=== PATIENT | male | born 1965 | race Caucasian/White ===

== ENCOUNTER 2017-02-22 12:05 | Emergency (ER) | payer MEDICARE, OTHER ==
[~2017-02-22] VITALS: Ht 167.6 cm; Wt 98.0 kg
[~2017-02-22 12:05] MED LIST: BENA10TA48 PO; DICL50TA2 PO; GLIP5TAB13 PO; HYDR-3498 PO; HYDR-762 PO; IBUP-1542 PO; METF500T4 PO; OMEP20CA16 PO; OXYC-284 PO; TIZA4CAP6 PO; TRAM50TA2 PO
[2017-02-22 12:07] VITALS: Ht 167.6 cm; Wt 98.0 kg
[2017-02-22] MEDS ORDERED: ONDANSETRON 4 MG INJ IV STA ×2 (12:48→14:41)
[2017-02-22] MEDS ORDERED: morphine 4 MG/ML VIAL IV STA (12:48)
[2017-02-22] MEDS ORDERED: METHYLPREDNISOLONE 125 MG INJ IV ONE (13:00)
[2017-02-22 13:05] LABS: ADD SCAN DIFF NO
[2017-02-22 13:07] LABS: BASOPHILS % 0.3 % (0.0-2.0); EOSINOPHILS % 0.4 % (0.0-7.0); HEMATOCRIT 44.3 % (42.0-52.0); HEMOGLOBIN 15.1 g/dl (14.0-18.0); LYMPHOCYTES # 1.7 10^3/ul (0.8-2.9); MEAN CORPUSCULAR HEMOGLOBIN 29.6 pg (29.0-33.0); MEAN CORPUSCULAR HGB CONC 34.1 g/dl (32.0-37.0); MEAN CORPUSCULAR VOLUME 86.9 fl (82.0-101.0); MEAN PLATELET VOLUME 9.9 fl (7.4-10.4); MONOCYTE # 0.6 10^3/ul (0.3-0.9); MONOCYTES % 6.1 % (0.0-11.0); NEUTROPHIL # 6.8 10^3/ul (1.6-7.5); NEUTROPHILS % 74.9 % (39.0-77.0); PLATELET COUNT 269 10^3/UL (140-415); RED CELL DISTRIBUTION WIDTH 12.3 % (11.5-14.5); WHITE BLOOD COUNT 9.2 10^3/ul (4.8-10.8)
[2017-02-22 13:27] LABS: INR 0.95; PROTIME 12.7 Sec (12.2-14.2)
[2017-02-22 13:28] LABS: PARTIAL THROMBOPLASTIN TIME 29.5 Sec (25.0-35.0)
[2017-02-22 13:29] LABS: ALBUMIN/GLOBULIN RATIO 1.54; ANION GAP 12 (8-16)
[2017-02-22 13:41] LABS: ALANINE AMINOTRANSFERASE 44 IU/L (13-69); ALBUMIN 4.8 g/dl (3.3-4.9); ALKALINE PHOSPHATASE 83 IU/L (42-121); AMYLASE 66 U/L (11-123); ASPARTATE AMINO TRANSFERASE 26 IU/L (15-46); BILIRUBIN,INDIRECT 0.5 mg/dl (0-1.1); BILIRUBIN,TOTAL 0.5 mg/dl (0.2-1.3); BLOOD UREA NITROGEN 10 mg/dl (7-20); CALCIUM 9.6 mg/dl (8.4-10.2); CARBON DIOXIDE 30 mmol/L (21-31); CHLORIDE 94 mmol/L (97-110); CREATININE 0.62 mg/dl (0.61-1.24); GLUCOSE 180 mg/dl (70-220); POTASSIUM 3.8 mmol/L (3.5-5.1); SODIUM 132 mmol/L (135-144); TOTAL PROTEIN 7.9 g/dl (6.1-8.1); TROPONIN-I < 0.012 ng/ml (0.00-0.12)
[2017-02-22] MEDS ORDERED: HYDROmorphONE 1 MG/ML SYG IV STA (14:41)
[2017-02-22] MEDS ORDERED: DIAZEPAM 5 MG/ML SYG IV ONE (15:00)
--- NOTE | 2017-02-22 15:58 | RADRPT ---
PROCEDURE: MRI lumbar spine without contrast CLINICAL INDICATION: Back pain TECHNIQUE: An high-resolution MRI of the lumbar spine was performed utilizing the following sequen albertina: Sagittal and axial T1 weighted, sagittal and axial T2 weighted, and sagittal fat suppressed T2. COMPARISON: None FINDINGS: No acute vertebral compression fracture. No evidence of a diffuse marrow replacing process. The conus medullaris terminates at L1. T12 - L1: The disk is preserved in height. 1 mm central disk protrusion. No spinal canal or foramin al stenosis. L1 - L2: The disk is preserved in height. Small circumferential disk bulge with 1 mm right central disk protrusion. No significant spinal canal or foraminal stenosis. L2 - L3: Mild disk height loss. Small circumferential disk bulge with superimposed 4 mm right fora elizabeth disk protrusion. Mild to moderate right foraminal narrowing. Narrowing of the right lateral recess with mild spinal canal stenosis. L3 - L4: Mild disk height loss. Right laminectomy changes. Cystic appearing structure in the rig ht central region extending to the laminectomy defect measures 8 x 15 mm and results in effacement o f the right lateral recess. An underlying small disk bulge and moderate thecal sac stenosis is ident ified. Moderate right and mild to moderate left foraminal narrowing. L4 - L5: Right laminectomy changes. Moderate circumferential disk bulge with residual or recurre nt 5 mm right foraminal disk protrusion is identified resulting in moderate right foraminal stenosis and effacement of the right lateral recess. There is borderline, mild spinal canal narrowing. Mil d to moderate left foraminal narrowing. L5 - S1: Bulging of the posterior disk annulus with advanced facet arthropathy. Moderate right an d mild left foraminal narrowing. No significant spinal canal stenosis. Paraspinal soft tissues are unremarkable. IMPRESSION: No acute compression fracture. L3 - L4: Right laminectomy changes. Cystic appearing structure in the right central region extend ing to the laminectomy defect measures 8 x 15 mm and results in effacement of the right lateral rece ss. This may represent extruded disk material or a facet synovial cyst. An underlying small disk bu lge and moderate thecal sac stenosis is identified. Moderate right and mild to moderate left forami nal narrowing. L4 - L5: Right laminectomy changes. Moderate circumferential disk bulge with residual or recurre nt 5 mm right foraminal disk protrusion is identified resulting in moderate right foraminal stenosis and effacement of the right lateral recess. There is borderline, mild spinal canal narrowing. Mil d to moderate left foraminal narrowing. L5 - S1: Bulging of the posterior disk annulus with advanced facet arthropathy. Moderate right an d mild left foraminal narrowing. See details in the findings. RPTAT: AA .Ravin Ragland MD, MD Date Time Electronically viewed and signed by .Ravin Ragland MD, on 02/22/2017 15:58 .T/
[2017-02-22] MEDS ORDERED: GLIP5TAB13 PO (16:13)
[2017-02-22] MEDS ORDERED: HYDR-902 PO (16:13)
[2017-02-22] MEDS ORDERED: BENA20TA48 PO (16:14)
[2017-02-22] MEDS ORDERED: CARI350T29 PO (16:14)
[2017-02-22] MEDS ORDERED: ATOR20TA38 PO (16:14)
[2017-02-22] MEDS ORDERED: MED4DP PO (17:04)
[2017-02-22] MEDS ORDERED: DIAZ10TA4 PO (17:04)
[2017-02-22 17:15] VITALS: BP 165/89; PULSE 78; RESP 16
--- NOTE | 2017-02-23 14:57 | ERD ---
ER Documentation Chief Complaint Date/Time DATE: 02/23/17 TIME: 14:52 Chief Complaint 10 lower back pain that radiates down r. leg x 1 day HPI This is a very pleasant 52-year-old male with a known history of chronic lower back pain with laminectomy of the lower lumbar spine one year prior to arrival. The patient indicates that for the past 48 hours he has been experiencing a severe pain in his right buttocks that radiates to the lateral aspect and top aspect of his right leg. He indicates that he is also experiencing some numbness in the lateral aspect of the leg. He denies any changes in his bladder or bowel frequency. He has had no fevers no shaking or chills. He denies any hemoptysis hematemesis or melanotic stools. The patient indicates he takes [place] and Soma for analgesic control which he took roughly an hour prior to arrival however this has not improved his symptoms. He does ambulate with a cane since the surgery. He denies any recent remote trauma. The patient indicates that the pain he is experiencing in his right buttocks and right leg with the numbness is similar to what he experienced one year ago prior to his surgery. He denies any chest pain or pressure. He denies any lower abdominal pain. He has no shortness of breath at rest or exertion. ROS All systems reviewed and are negative except as per history of present illness. Medications Home Meds Active Scripts Diazepam* (Diazepam*) 10 Mg Tablet, 10 MG PO Q6, #10 TAB Prov:CITLALLI MONTES 02/22/17 Methylprednisolone* (Medrol* DOSE PACK) 4 Mg/Dose-Pack Tab.ds.pk, 4 MG PO . DIRECTED, #1 PACKET Prov:CITLALLI MONTES 02/22/17 Reported Medications Atorvastatin Calcium* (Atorvastatin Calcium*) 20 Mg Tablet, 20 MG PO QHS, #30 TAB 02/22/17 Benazepril Hcl* (Benazepril Hcl*) 20 Mg Tablet, 20 MG PO DAILY, #30 TAB 02/22/17 Carisoprodol* (Carisoprodol*) 350 Mg Tablet, 350 MG PO DAILY Y for MUSCLE SPASMS , TAB 02/22/17 Glipizide* (Glipizide*) 5 Mg Tablet, 5 MG PO AC BREAKFAST, TAB 02/22/17 Hydrocodone/Acetaminophen ([place] 10-325 Tablet) 1 Each Tablet, 1 EACH PO Q6H Y for PAIN, TAB 02/22/17 Discontinued Reported Medications Metformin Hcl* (Metformin Hcl*) 500 Mg Tablet, 500 MG PO BID, #30 TAB 06/26/16 Benazepril Hcl* (Benazepril Hcl*) 10 Mg Tablet, 10 MG PO DAILY, #30 TAB 06/26/16 Glipizide* (Glipizide*) 5 Mg Tablet, 5 MG PO DAILY, TAB 01/03/15 Omeprazole* (Omeprazole*) 20 Mg Capsule.dr, 20 MG PO DAILY, CAP 01/03/15 Hydrocodone Bit-Acetaminophen* ([place]*) 10-325 Mg Tablet, 1 TAB PO Q4H Y for PAIN, TAB 01/03/15 Discontinued Scripts Tramadol HCl (Tramadol HCl) 50 Mg Tablet, 50 MG PO Q6 Y for PAIN, #6 TAB Prov:[facility] 11/05/15 Diclofenac Potassium (Diclofenac Potassium) 50 Mg Tablet, 50 MG PO Q8, #10 TAB [facility] 11/05/15 Tizanidine Hcl* (Tizanidine Hcl*) 4 Mg Capsule, 4 MG PO Q8H Y for MUSCLE SPASMS , #12 CAP Prov:LEXY,[facility] 11/05/15 Hydrocodone Bit-Acetaminophen* ([place]*) 5-325 Mg Tab, 1 TAB PO Q6 Y for PAIN, # 7 TAB Prov:ELYSE FAROOQ [employer] 11/04/15 Ibuprofen* (Motrin*) 600 Mg Tab, 600 MG PO Q6H Y for PAIN AND OR ELEVATED TEMP, #30 TAB Prov:ELEN RILEY [employer] 11/02/15 Oxycodone Hcl-Acetaminophen* (Percocet*) 10-325 Mg Tablet, 1 TAB PO Q4H Y for SEVERE PAIN LEVEL 7-10, #30 TAB Prov:ELEN RILEY [employer] 11/02/15 Hydrocodone Bit-Acetaminophen* ([place]*) 10-325 Mg Tablet, 1 TAB PO Q6 Y for PAIN , #10 TAB Prov:LINA TORO NP 10/23/15 Allergies Allergies: Coded Allergies: No Known Allergy (Unverified , 02/22/17) PMhx/Soc History of Surgery: Yes (see notes) Anesthesia Reaction: No Hx Neurological Disorder: No Hx Respiratory Disorders: No Hx Cardiac Disorders: Yes (htn) Hx Psychiatric Problems: No Hx Miscellaneous Medical Probl: Yes (see notes) Hx Alcohol Use: No Hx Substance Use: No Hx Tobacco Use: No Smoking Status: Never smoker Physical Exam Vitals Vital Signs Date Time Temp Pulse Resp B/P Pulse Ox O2 Delivery O2 Flow Rate FiO2 02/22/17 17:15 78 16 165/89 98 Room Air 02/22/17 13:40 80 16 207/106 98 Room Air 02/22/17 12:07 97.4 98 18 219/105 96 Physical Exam Constitutional:Well-developed. Well-nourished. HEENT:Normocephalic. Atraumatic.Pupils were equal round reactive to light. Moist mucous membranes.No tonsillar exudates. Neck: No nuchal rigidity. No lymphadenopathy. No posterior cervical spine tenderness or step-offs. Respiratory: Not using accessory muscles of respiration.Lungs were clear to auscultation bilaterally. No rhonchi. No rales. No wheezing. Cardiovascular: Regular rate regular rhythm.No murmurs. No rubs were appreciated.S1, S2 normal. Distal pulses are palpable 2+ bilaterally. GI: Abdomen was soft. Nontender. Non Distended. No pulsatile abdominal masses or bruits. No rebound. No guarding. Bowel sounds were present and normal. Muscle skeletal: Full range of motion of both the upper and lower extremities bilaterally.Normal muscle tone.No assymetrical calf tenderness or swelling. Reproducible paralumbar tenderness on the right side over L4-L5 with positive straight leg test on the right. Straight leg test negative on the left. No tenderness with palpation or percussion of the thoracic spinous processes Skin: No petechia, no purpura. No lesions on the palms or the soles of the feet. No maculopapular rash. NEURO: Patient was alert, awake, orientated x3.No facial droop. Gait observed and normal with no ataxia.Speech had regular rate and rhythm. No focal neurological deficits. Result Diagram: 02/22/17 1251 02/22/17 1251 Results 24 hrs Laboratory Tests Test 02/22/17 12:51 White Blood Count 9.210^3/ul Red Blood Count 5.1010^6/ul Hemoglobin 15.1g/dl Hematocrit 44.3% Mean Corpuscular Volume 86.9fl Mean Corpuscular Hemoglobin 29.6pg Mean Corpuscular Hemoglobin Concent 34.1g/dl Red Cell Distribution Width 12.3% Platelet Count 99935^3/UL Mean Platelet Volume 9.9fl Neutrophils % 74.9% Lymphocytes % 18.0% Monocytes % 6.1% Eosinophils % 0.4% Basophils % 0.3% Nucleated Red Blood Cells % 0.0/100WBC Neutrophils # 6.810^3/ul Lymphocytes # 1.710^3/ul Monocytes # 0.610^3/ul Eosinophils # 0.010^3/ul Basophils # 0.010^3/ul Nucleated Red Blood Cells # 0.010^3/ul Prothrombin Time 12.7Sec Prothrombin Time Ratio 1.0 INR International Normalized Ratio 0.95 Activated Partial Thromboplast Time 29.5Sec Sodium Level 132mmol/L Potassium Level 3.8mmol/L Chloride Level 94mmol/L Carbon Dioxide Level 30mmol/L Anion Gap 12 Blood Urea Nitrogen 10mg/dl Creatinine 0.62mg/dl Glucose Level 180mg/dl Calcium Level 9.6mg/dl Total Bilirubin 0.5mg/dl Direct Bilirubin 0.00mg/dl Indirect Bilirubin 0.5mg/dl Aspartate Amino Transf (AST/SGOT) 26IU/L Alanine Aminotransferase (ALT/SGPT) 44IU/L Alkaline Phosphatase 83IU/L Troponin I < 0.012ng/ml Total Protein 7.9g/dl Albumin 4.8g/dl Globulin 3.10g/dl Albumin/Globulin Ratio 1.54 Amylase Level 66U/L Lipase 26U/L Current Medications Medications (Trade) Dose Ordered Sig/Beni Route PRN Reason Start Time Stop Time Status Last Admin Dose Admin Morphine Sulfate (morphine) 4 mg ONCE STAT IV 02/22/17 12:48 02/22/17 12:52 DC 02/22/17 13:28 Ondansetron HCl (Zofran Inj) 4 mg ONCE STAT IV 02/22/17 12:48 02/22/17 12:52 DC 02/22/17 13:28 Clonidine (Catapres) 0.1 mg ONCE ONCE PO 02/22/17 13:00 02/22/17 13:01 DC 02/22/17 13:34 Methylprednisolone Sodium Succinate (Solu-Medrol) 125 mg ONCE ONCE IV 02/22/17 13:00 02/22/17 13:01 DC 02/22/17 13:28 Hydromorphone HCl (Dilaudid) 1 mg ONCE STAT IV 02/22/17 14:41 02/22/17 14:42 DC 02/22/17 15:43 Ondansetron HCl (Zofran Inj) 4 mg ONCE STAT IV 02/22/17 14:41 02/22/17 14:42 DC 02/22/17 15:41 Diazepam (Valium) 5 mg ONCE ONCE IV 02/22/17 15:00 02/22/17 15:01 DC 02/22/17 15:42 Procedures/MDM The patient presented to the emergency department with back pain. My differential diagnosis included but was not limited to spinal origins of the pain such as fracture, osteomyelitis, epidural abscess, neoplasm, spondylolishtesis, discogenic, cauda equina syndrome or musculoligamentous. Nonspinal causes such as AAA, upper UTI, renal colic, aortic dissection, abdominal neoplasm were also considered as an etiology into their pain. 12 Lead EKG tracing ordered and reviewed by myself showed: Normal sinus rhythm of 75 bpm and no arrhythmia. AL interval normal. QRS duration normal. No ST segment elevation No ST segment depression. No changes consistent with acute ischemia. The patient had no electrolyte abnormalities. The patient was in severe discomfort with new neurological symptoms that could be concerning for cauda equina syndrome. Therefore I felt it was necessary to obtain an emergent MRI of the lumbar spine. This was reviewed by myself and the radiologist and there is no evidence of central cord stenosis but the patient did have severe degenerative disc disease. This could be contributing to symptoms. Therefore the patient received analgesic control with IV opiates and IV Valium. After reevaluation the patient's pain had significantly improved from 10 out of 10 in intensity to 2 out of 10 in intensity. His brother was present to take the patient home. He felt comfortable being discharged home. I did provide him a prescription for Valium as he really has [place] at home. I instructed him to not consume both the valium and Soma subcutaneously as they are both used for muscular relaxants. The patient did understand this and stated he will no longer use this home as he did not feel is working. The patient was discharged home in fair condition. They were instructed to return to the emergency department at any time if there was any worsening of their condition. The patient stated they would follow up with their PCP in the next 24-48 hours to initiate a suitable medication regimen under the care of their PCP as well as to allow their PCP to monitor any drug reactions. The patient was discharged home with prescriptions after they gave informed consent to the new medication. They were also fully informed by myself on the adverse effects and adverse drug interactions in order to provide adequate safeguards to prevent possible adverse reactions to medications. Departure Diagnosis: Primary Impression: Sciatica Laterality: right Qualified Code: M54.31 - Sciatica of right side Additional Impression: Chronic back pain Back pain location: low back pain Back pain laterality: bilateral Sciatica presence: with sciatica Sciatica laterality: bilateral sciatica Qualified Code: M54.42 - Chronic bilateral low back pain with bilateral sciatica Condition: Fair Patient Instructions: Back Pain W/ Sciatica Referrals: ALBERT NELSON MD (PCP) CITLALLI MONTES Feb 23, 2017 14:57
== END 2017-02-22 17:18 | disposition home or self-care (01) ==
LOC: E/R 12:05
DX: M54.42 Lumbago with sciatica, left side (principal); M54.41 Lumbago with sciatica, right side; I10 Essential (primary) hypertension; R07.9 Chest pain, unspecified; Z79.84 Long term (current) use of oral hypoglycemic drugs
CPT/HCPCS: 72148; 80053; 82150; 83690; 84484; 85025; 85610; 85730; J1170; J2270; J2405; J2930; J3360; 93005; 96374; 96375; 96376

== ENCOUNTER 2017-02-24 15:23 | Emergency (ER) | payer MEDICARE, OTHER ==
[~2017-02-24] VITALS: Ht 170.2 cm; Wt 93.2 kg
[~2017-02-24 15:23] MED LIST changes: +ATOR20TA38 PO; -BENA10TA48 PO; +BENA20TA48 PO; +CARI350T29 PO; +DIAZ10TA4 PO; -DICL50TA2 PO; -HYDR-3498 PO; -HYDR-762 PO; +HYDR-902 PO; -IBUP-1542 PO; +MED4DP PO; -METF500T4 PO; -OMEP20CA16 PO; -OXYC-284 PO; -TIZA4CAP6 PO; -TRAM50TA2 PO
[2017-02-24 15:29] VITALS: Ht 170.2 cm; Wt 93.2 kg
[2017-02-24 19:09] VITALS: TEMP 97.6
[2017-02-24] MEDS ORDERED: HYDROmorphONE 2 MG/ML SYG IM STA (19:59)
[2017-02-24 20:56] VITALS: BP 169/81; PULSE 79; RESP 16
--- NOTE | 2017-02-25 00:09 | ERD ---
ER Documentation Chief Complaint Date/Time DATE: 02/25/17 TIME: 00:06 Chief Complaint LOWER BACK PAIN AND REPEAT VISIT FOR SAME ISSUE HPI 52-year-old male patient with chronic back pain presents to the ED complaining of lower back pain that started intermittently for the last 3 weeks. Patient was seen here on February 22, 2017 and was diagnosed with chronic sciatica. Patient had a full workup with negative blood work. Patient does have disc bulges noted on his MRI. Denies any saddle anesthesia, urine or bowel incontinence, urinary retention, fever, chills, abdominal pain, nausea, vomiting , diarrhea, constipation. ROS All systems reviewed and are negative except as per history of present illness. Medications Home Meds Active Scripts Diazepam* (Diazepam*) 10 Mg Tablet, 10 MG PO Q6, #10 TAB Prov:CITLALLI MONTES 02/22/17 Methylprednisolone* (Medrol* DOSE PACK) 4 Mg/Dose-Pack Tab.ds.pk, 4 MG PO . DIRECTED, #1 PACKET Prov:CITLALLI MONTES 02/22/17 Reported Medications Atorvastatin Calcium* (Atorvastatin Calcium*) 20 Mg Tablet, 20 MG PO QHS, #30 TAB 02/22/17 Benazepril Hcl* (Benazepril Hcl*) 20 Mg Tablet, 20 MG PO DAILY, #30 TAB 02/22/17 Carisoprodol* (Carisoprodol*) 350 Mg Tablet, 350 MG PO DAILY Y for MUSCLE SPASMS , TAB 02/22/17 Glipizide* (Glipizide*) 5 Mg Tablet, 5 MG PO AC BREAKFAST, TAB 02/22/17 Hydrocodone/Acetaminophen ([place] 10-325 Tablet) 1 Each Tablet, 1 EACH PO Q6H Y for PAIN, TAB 02/22/17 Allergies Allergies: Coded Allergies: No Known Allergy (Unverified , 02/22/17) PMhx/Soc History of Surgery: Yes (see notes; BACK SX 2015) Anesthesia Reaction: No Hx Neurological Disorder: No Hx Respiratory Disorders: No Hx Cardiac Disorders: Yes (htn) Hx Psychiatric Problems: No Hx Miscellaneous Medical Probl: Yes (see notes) Hx Alcohol Use: No Hx Substance Use: No Hx Tobacco Use: No Smoking Status: Never smoker Physical Exam Vitals Vital Signs Date Time Temp Pulse Resp B/P Pulse Ox O2 Delivery O2 Flow Rate FiO2 7/16/17 20:56 79 16 169/81 98 Room Air 02/24/17 19:09 97.6 76 16 183/90 10 Room Air 02/24/17 15:29 98.0 74 18 166/86 98 Physical Exam Const: [id number], well-nourished. In no acute distress. Head: Atraumatic, normocephalic Eyes: Normal Conjunctiva without injection. No purulent discharge. ENT: Normal external ear, nose. Moist oropharynx without tonsillar exudates. Non -erythematous pharynx. Uvula midline. No drooling. No trismus. Neck: No cervical midline tenderness. Full range of motion. No meningismus. No cervical lymphadenopathy. No JVD. Resp: Clear to auscultation bilaterally. No wheezing, rhonchi, rales, or crackles. No accessory muscle use. No retractions. Cardio: Regular rate and rhythm. No murmurs, rubs or gallops. Abd: Soft, nontender, non distended. Normal bowel sounds. No palpable masses. No rebound tenderness. No guarding. Negative McBurney's point. Negative psoas sign. Negative obturator sign. Skin: No petechiae or rashes Back: No midline tenderness. No CVA tenderness. Positive straight leg test. Tenderness to palpation of the lumbar spine muscles of the right side. No fluctuance or induration. Ext: No cyanosis, or edema. Neur: Awake and alert. Normal gait. Normal coordination. Psych: Normal Mood and Affect Results 24 hrs Current Medications Medications (Trade) Dose Ordered Sig/Beni Route PRN Reason Start Time Stop Time Status Last Admin Dose Admin Hydromorphone HCl (Dilaudid) 2 mg ONCE STAT IM 02/24/17 19:59 02/24/17 20:01 DC 02/24/17 20:23 Procedures/MDM This is a 52-year-old male patient with a past medical history of chronic back pain presents to the ED complaining of the same back pain. Patient is afebrile and nontoxic-appearing. Patient has normal vital signs. This case discussed my supervising physician, Dr. Montes who also saw patient during his last visit on February 22, 2017 who agreed with the management and discharge plan. She was given 2 mg IM Dilaudid with improvement of his pain. This is likely patient 's chronic back pain with sciatica. Patient is ambulating here in the ED without difficulty. Denies saddle anesthesia, numbness or tingling, urine or bowel incontinence, weakness. Low suspicion for cauda equina syndrome, cord compression, nephrolithiasis, aortic aneurysm, aortic dissection, epidural abscess, spinal hematoma, malignancy, pyelonephritis, or other emergent conditions. Follow up with primary care physician in 1-2 days for referral to an orthopedic physician as well as chronic pain specialist. Instructed patient to return to the ED sooner for any worsening symptoms. Patient's questions were answered. Patient understood and agreed with discharge plan. Patient discharged stable. Departure Diagnosis: Primary Impression: Chronic back pain Back pain location: back pain in unspecified location Back pain laterality: unspecified Qualified Code: M54.9 - Chronic back pain, unspecified back location, unspecified back pain laterality Additional Impression: Sciatica Laterality: right Qualified Code: M54.31 - Sciatica of right side Condition: Stable Patient Instructions: Relieving Back Pain, Self-Care for Low Back Pain, Back Pain (Acute Or Chronic), Back Pain W/ Sciatica Referrals: ALBERT NELSON MD (PCP) [facility] YOU HAVE RECEIVED A MEDICAL SCREENING EXAM AND THE RESULTS INDICATE THAT YOU DO NOT HAVE A CONDITION THAT REQUIRES URGENT TREATMENT IN THE EMERGENCY DEPARTMENT. FURTHER EVALUATION AND TREATMENT OF YOUR CONDITION CAN WAIT UNTIL YOU ARE SEEN IN YOUR DOCTORS OFFICE WITHIN THE NEXT 1-2 DAYS. IT IS YOUR RESPONSIBILITY TO MAKE AN APPOINTMENT FOR FOLOW-UP CARE. IF YOU HAVE A PRIMARY DOCTOR --you should call your primary doctor and schedule an appointment IF YOU DO NOT HAVE A PRIMARY DOCTOR YOU CAN CALL OUR PHYSICIAN REFERRAL HOTLINE AT IF YOU CAN NOT AFFORD TO SEE A PHYSICIAN YOU CAN CHOSE FROM THE FOLLOWING [facility] [address] [facility] [address] [facility] [facility] [address] [facility] [address] [facility] [address] [facility] [address] [facility]. [facility] YOU HAVE RECEIVED A MEDICAL SCREENING EXAM AND THE RESULTS INDICATE THAT YOU DO NOT HAVE A CONDITION THAT REQUIRES URGENT TREATMENT IN THE EMERGENCY DEPARTMENT. FURTHER EVALUATION AND TREATMENT OF YOUR CONDITION CAN WAIT UNTIL YOU ARE SEEN IN YOUR DOCTORS OFFICE WITHIN THE NEXT 1-2 DAYS. IT IS YOUR RESPONSIBILITY TO MAKE AN APPOINTMENT FOR FOLOW-UP CARE. IF YOU HAVE A PRIMARY DOCTOR --you should call your primary doctor and schedule and appointment IF YOU DO NOT HAVE A PRIMARY DOCTOR YOU CAN CALL OUR PHYSICIAN REFERRAL HOTLINE AT . IF YOU CAN NOT AFFORD TO SEE A PHYSICIAN YOU CAN CHOSE FROM THE FOLLOWING [facility] INSTITUTIONS: [address] URGENT CARE/[facility] Urgent Care 7 a.m.- 11 p.m. Every Day of the Week NO APPOINTMENT OR AUTHORIZATION NEEDED SO [facility] [place] Hours: Mon-Fri 9:00 AM - 5:00 PM Additional Instructions: FOLLOW UP WITH YOUR PRIMARY CARE PHYSICIAN TOMORROW.Return to this facility if you are not improving as expected. JYOTI TATE PA-C Feb 25, 2017 00:[id number] [address] [facility] URGENT CARE/[facility] Urgent Care 7 a.m.- 11 p.m. Every Day of the Week NO APPOINTMENT OR AUTHORIZATION NEEDED [facility] Hours: Mon-Fri 9:00 AM - 5:00 PM Additional Instructions: FOLLOW UP WITH YOUR PRIMARY CARE PHYSICIAN TOMORROW.Return to this facility if you are not improving as expected. JYOTI TATE PA-C Feb 25, 2017 00:09
== END 2017-02-24 20:57 | disposition home or self-care (01) ==
LOC: FTE 15:23
DX: M54.41 Lumbago with sciatica, right side (principal); I10 Essential (primary) hypertension
CPT/HCPCS: 96372; 99284; J1170

== ENCOUNTER 2018-01-28 03:32 | Emergency (ER) | END 2018-01-28 04:26 | disposition home or self-care (01) ==

== ENCOUNTER 2018-08-08 00:08 | Emergency (ER) | END 2018-08-08 03:06 | disposition home or self-care (01) ==

== ENCOUNTER 2018-10-04 14:16 | Emergency (ER) | payer OTHER ==
[~2018-10-04] VITALS: Wt 116.3 kg
[~2018-10-04 14:16] MED LIST changes: +AMOX500C2 PO; +AZIT250T PO; +BENA20TA4 PO; -BENA20TA48 PO; +BENZ-6 PO; +D-ME118S24 PO; +HYDR-3980 PO; -HYDR-902 PO; +SODI30SP2 NS
[2018-10-04] MEDS ORDERED: KETOROLAC 60 MG INJ IM STA (15:06)
[2018-10-04] MEDS ORDERED: AZIT250T PO (15:39)
[2018-10-04] MEDS ORDERED: PROM5SYR2 PO (15:39)
[2018-10-04] MEDS ORDERED: IBUP-1542 PO (15:39)
--- NOTE | 2018-10-04 15:44 | ERD ---
ER Documentation Chief Complaint Chief Complaint GENERALIZED BODY ACHE WITH COUGH X 2 WEEKS HPI 53-year-old male presents with productive cough for last week. He also has body aches. Is no measured fevers, chest pain, vomiting, abdominal pain. He has upper back pain with coughing. She has a history of hypertension, diabetes, takes [place] for chronic back pain. X-ray from July shows possible patchy infiltrates in lower lobes. ROS All systems reviewed and are negative except as per history of present illness. Medications Home Meds Active Scripts Ibuprofen* (Motrin*) 600 Mg Tab, 600 MG PO Q6, #15 TAB Prov:MISAEL LEÓN MD 10/04/18 Promethazine HCl/Codeine (Prometh-Codein 6.25-10 mg/5 ml) 5 Ml Syrup, 5 ML PO QID for 5 Days 4 ounces Prov:MISAEL LEÓN MD 10/04/18 Azithromycin* (Zithromax*) 250 Mg Tablet, 250 MG PO .ZPACK DIRECTED, #6 TAB TAKE 500 MG (2 TABS) THE FIRST DAY THEN 250 MG (1 TAB) DAYS 2-5 Prov:MISAEL LEÓN MD 10/04/18 Benzonatate* (Tessalon Perle*) 100 Mg Capsule, 100 MG PO Q8H PRN for COUGH, #20 CAP Prov:JYOTI TATE PA-C 08/08/18 Amoxicillin* (Amoxicillin*) 500 Mg Cap, 1 GM PO TID for 10 Days, CAP Prov:JYOTI TATE PA-C 08/08/18 Azithromycin* (Zithromax*) 250 Mg Tablet, 250 MG PO .ZPACK DIRECTED, #6 TAB TAKE 500 MG (2 TABS) THE FIRST DAY THEN 250 MG (1 TAB) DAYS 2-5 Prov:JYOTI TATE PA-C 08/08/18 D-Methorphan Hb/P-Epd HCl/Bpm (Xgspezdrps-Kckudujegfl-Fv Syr) 118 Ml Syrup, 5 ML PO Q4H PRN for COUGH for 7 Days, #1 BOTTLE Prov:IKE SUGGS DO 07/26/18 Sodium Chloride (Saline Nasal [place]) 30 Ml [place], 30 ML NS BID PRN for NASAL CONGESTION, #1 BOTTLE Prov:IKE SUGGS DO 07/26/18 Diazepam* (Diazepam*) 10 Mg Tablet, 10 MG PO Q6, #10 TAB Prov:CITLALLI MONTES MD 02/22/17 Methylprednisolone* (Medrol* DOSE PACK) 4 Mg/Dose-Pack Tab.ds.pk, 4 MG PO . DIRECTED, #1 PACKET Prov:CITLALLI MONTES MD 02/22/17 Reported Medications Atorvastatin Calcium* (Atorvastatin Calcium*) 20 Mg Tablet, 20 MG PO QHS, #30 TAB 02/22/17 Benazepril Hcl* (Benazepril Hcl*) 20 Mg Tablet, 20 MG PO DAILY, #30 TAB 02/22/17 Carisoprodol* (Carisoprodol*) 350 Mg Tablet, 350 MG PO DAILY PRN for MUSCLE SPASMS, TAB 02/22/17 Glipizide* (Glipizide*) 5 Mg Tablet, 5 MG PO AC BREAKFAST, TAB 02/22/17 Hydrocodone/Acetaminophen ([place] 10-325 Tablet) 1 Each Tablet, 1 EACH PO Q6H PRN for PAIN, TAB 02/22/17 Allergies Allergies: Coded Allergies: No Known Allergy (Unverified , 02/22/17) PMhx/Soc History of Surgery: Yes (back surgery 2 years ago, ) Anesthesia Reaction: No Hx Neurological Disorder: No Hx Respiratory Disorders: No Hx Cardiac Disorders: Yes (hx high blood pressure, and high cholesterol) Hx Psychiatric Problems: No Hx Miscellaneous Medical Probl: Yes (hx diabetes ) Hx Alcohol Use: No Hx Substance Use: No Hx Tobacco Use: No Smoking Status: Never smoker FmHx Family History: No diabetes, No coronary disease, No other Physical Exam Vitals Vital Signs Date Temp Pulse Resp B/P (MAP) Pulse Ox O2 O2 Flow FiO2 Time Delivery Rate 10/04/18 98.1 102 22 141/86 99 14:20 (104) Physical Exam Const: No acute distress Head: Atraumatic Eyes: Normal Conjunctiva ENT: Normal External Ears, Nose and Mouth. TMs and oropharynx normal. Neck: Full range of motion. No meningismus. Resp: Clear to auscultation bilaterally. Coarse cough without rales, wheezing or retractions. Cardio: Regular rate and rhythm, no murmurs Abd: Soft, non tender, non distended. Normal bowel sounds Skin: No petechiae or rashes Back: No midline or flank tenderness Ext: No cyanosis, or edema Neur: Awake and alert Psych: Normal Mood and Affect Results 24 hrs Current Medications Medications Dose Sig/Beni Start Time Status Last (Trade) Ordered Route PRN Stop Time Admin Dose Reason Admin Ketorolac 60 mg ONCE STAT 10/04/18 DC Tromethamine IM 15:06 (Toradol) 10/04/18 15:07 Procedures/MDM Chest X-ray 1V Interpreted by me: Soft Tissue: No acute abnormalities Bones: No acute abnormalities Mediastinum/Cardiac Silhouette/Lungs: No acute abnormalities. Impression- normal 1 view chest x-ray Patient presents with myalgias, productive cough for the last week. He has no signs of hypoxemia rest or distress, signs of abdominal pain or cardiac chest pain. EKG: Rate/Rhythm: Normal Sinus Rhythm. Rate equals 101 QRS, ST, T-waves: No changes consistent w/ acute ischemia Impression: No evidence of ischemia or arrhythmia. Impression-nonspecific ST changes without acute findings of ischemia or arrhythmia. Minimal sinus tachycardia. Patient was given Toradol 60 mg IM. Patient resents with signs symptoms of URI, will treat empirically with Zithromax, meclizine codeine, ibuprofen, primary care follow-up and return precautions. Patient has no signs or symptoms to suggest DKA, sepsis, abdominal pain, cardiac chest pain. The patient was stable with no new complaints during the ER course. Clinically, there is no current evidence to suggest meningitis, sepsis, acute abdomen, pneumonia, stroke, acute coronary syndrome, pulmonary embolism, aortic dissection or any other emergent condition appearing to require further evaluation or hospitalization. Patient counseled regarding my diagnostic impression and care plan. Prior to discharge all questions answered. Pt agrees with treatment plan and understands strict return precautions. Pt is instructed to follow up with primary care provider within 24-48 hours. Precautionary instructions provided including instructions to return to the ER if not improving or for any worsening or changing symptoms or concerns. Departure Diagnosis: Primary Impression: Cough Condition: Stable Patient Instructions: Bronchitis, Antiobiotic Treatment (Adult) Referrals: ANTONIETA NELSON (PCP) Additional Instructions: No significant abnormal findings seen on x-ray. See primary doctor as scheduled. Recheck otherwise for new or worsening symptoms. MISAEL LEÓN MD Oct 04, 2018 15:44
[2018-10-04 16:20] VITALS: BP 129/69; PULSE 96; RESP 20
== END 2018-10-04 16:20 | disposition home or self-care (01) ==
LOC: FTE 14:16
DX: R05 Cough (principal); I10 Essential (primary) hypertension; E11.9 Type 2 diabetes mellitus without complications
CPT/HCPCS: 71045; 93005; 96372; 99284; J1885

== ENCOUNTER 2019-04-12 04:38 | Emergency (ER) | payer OTHER, MEDICAID ==
[~2019-04-12] VITALS: Ht 167.6 cm; Wt 89.8 kg
[~2019-04-12 04:38] MED LIST changes: +ALBU18HF INHALATION; +IBUP-1542 PO; +IBUP800T48 PO; +PROM5SYR2 PO
[2019-04-12 04:39] VITALS: Ht 167.6 cm; Wt 89.8 kg
[2019-04-12] MEDS ORDERED: SODIUM CHLORIDE 0.9% 1L BAG IV* STA (05:25)
[2019-04-12] MEDS ORDERED: CEFTRIAXONE 1 GM/50 ML (PMX) 50 ML IVPB ONE (05:30)
[2019-04-12] MEDS ORDERED: ONDANSETRON 4 MG INJ IV ONE (05:40)
[2019-04-12] MEDS ORDERED: ACETAMINOPHEN 500 MG TAB PO STA (06:08)
[2019-04-12] MEDS ORDERED: KETOROLAC 30 MG INJ IV STA (06:08)
[2019-04-12] MEDS ORDERED: AZITHROMYCIN 500MG/NS (PMX) 250 ML IVPB ONE (08:00)
[2019-04-12 09:07] VITALS: BP 128/74; PULSE 82; RESP 18
== END 2019-04-12 09:09 | disposition home or self-care (01) ==
LOC: E/R 04:38
DX: J18.1 Lobar pneumonia, unspecified organism (principal); E11.9 Type 2 diabetes mellitus without complications; R65.10 Systemic inflammatory response syndrome (SIRS) of non-infectious origin without acute organ dysfunction; Z79.84 Long term (current) use of oral hypoglycemic drugs
CPT/HCPCS: 36415; 71045; 80053; 81001; 83605; 83690; 84484; 85025; 85610; 85730; 87040; 87086; 93005; 96361; 96365; 96367; 96375; 99284; J0456; J0696; J1885; J2405; J7030